=== PATIENT | male | born 1980 | race Two or more races ===

== ENCOUNTER 2023-04-01 08:50 | Emergency (ER) | payer BC ==
[~2023-04-01] VITALS: Ht 180.3 cm; Wt 120.5 kg
[2023-04-01 09:09] VITALS: TEMP 98.4
[2023-04-01 09:26] LABS: COVID AG,FIA SOURCE NASAL SWAB
[2023-04-01 09:57] LABS: INFLUENZA TYPE A NEGATIVE FOR TYPE A (NEGATIVE); INFLUENZA TYPE B NEGATIVE FOR TYPE B (NEGATIVE); SARS-COV2 (COVID) ANTIGEN,FIA Negative (Negative)
[2023-04-01] MEDS ORDERED: KETOROLAC TROMETHAMINE 60 MG/2 ML VIAL IM ONE (11:30)
[2023-04-01] MEDS ORDERED: HYDROCODONE/ACETAMINOPHEN 5-325 MG TABLET PO ONE (11:30)
[2023-04-01] MEDS ORDERED: IPRATROPIUM BROMIDE 0.5 MG/2.5 ML NEB SOLUTION NEB ONE (13:00)
[2023-04-01] MEDS ORDERED: ALBUTEROL SULFATE 2.5 MG/0.5 ML NEB SOLUTION NEB ONE (13:00)
[2023-04-01 13:25] VITALS: PULSE 99; RESP 18; O2SAT 98
[2023-04-01 13:35] VITALS: PULSE 99; RESP 18; O2SAT 100
[2023-04-01 14:10] VITALS: BP 151/90; PULSE 99; RESP 18
[2023-04-01] MEDS ORDERED: HYDR-4723 PO (16:02)
== END 2023-04-01 15:04 | disposition home or self-care (01) ==
LOC: EMS 08:50
DX: S52.132A Displaced fracture of neck of left radius, initial encounter for closed fracture (principal); Z20.822 Contact with and (suspected) exposure to COVID-19; X58.XXXA Exposure to other specified factors, initial encounter; Y93.89 Activity, other specified; Y92.89 Other specified places as the place of occurrence of the external cause; Y99.8 Other external cause status
CPT/HCPCS: 71101; 87804; 94640; 96372; 99284; J1885